=== PATIENT | female | born 1975 | race Two or more races ===

== ENCOUNTER 2024-01-12 14:24 | Emergency (ER) | payer OTHER ==
[~2024-01-12] VITALS: Ht 152.4 cm; Wt 63.5 kg
[2024-01-12] MEDS ORDERED: ORPHENADRINE CITRATE 30 MG/ML AMPUL IM ONE (15:00)
[2024-01-12] MEDS ORDERED: KETOROLAC TROMETHAMINE 60 MG VIAL IM ONE (15:00)
== END 2024-01-12 16:10 | disposition home or self-care (01) ==
LOC: ER 14:25
DX: M79.641 Pain in right hand (principal)